=== PATIENT | female | born 1995 | race Caucasian/White ===

== ENCOUNTER 2017-08-29 19:04 | Emergency (ER) | payer OTHER ==
[~2017-08-29] VITALS: Ht 167.6 cm; Wt 90.7 kg
[2017-08-29 19:22] VITALS: BP 124/70
[2017-08-29] MEDS ORDERED: NS 1000ML 1,000 ML ONE ×2 (19:22→20:50)
[2017-08-29] MEDS ORDERED: NS 1000ML 1,000 ML IV ONE (19:30)
--- NOTE | 2017-08-29 19:30 | ER.PDOC ---
General Chief Complaint: Abdomen Pain Stated Complaint: VOMITING AND SIDE/BACK PAIN Time seen by MD: 19:25 Source: patient Exam Limitations: no limitations History of Present Illness Initial Comments Abdominal pain started earlier today, nausea, vomiting and epigastric, RUQ pain , radiating to back Timing/Duration: 4-6 hours Severity/Quality: severe, sharpness Radiation: RUQ, flank (right) Associated Symptoms: nausea/vomiting Exacerbated by: movements Allergies: Coded Allergies: No Known Allergies (Unverified , 08/29/17) Vital Signs First Vital Signs Date Time Temp Pulse Resp B/P (MAP) Pulse Ox O2 Delivery O2 Flow Rate FiO2 08/29/17 19:17 99.8 08/29/17 19:22 115 16 124/70 (88) 97 Room Air Last Vital Signs Date Time Temp Pulse Resp B/P (MAP) Pulse Ox O2 Delivery O2 Flow Rate FiO2 08/29/17 19:22 99.8 115 16 124/70 (88) 97 Room Air Past Medical History Medical History: no pertinent history Surgical History: cholecystectomy, Social History Smoking: non-smoker Alcohol Use: none Drug Use: none Constitutional: no symptoms reported EENTM: no symptoms reported Respiratory: no symptoms reported Cardiovascular: no symptoms reported Gastrointestinal: nausea, poor appetite, poor fluid intake, vomiting Genitourinary: no symptoms reported Musculoskeletal: no symptoms reported Skin: no symptoms reported Psychiatric/Neurological: no symptoms reported Endocrine: no symptoms reported Hematologic/Lymphatic: no symptoms reported Physical Exam General Appearance: No Apparent Distress, WD/WN HEENT: PERRL/EOMI, Normal ENT Inspection, TMs Normal, Pharynx Normal Neck: Non-Tender, Full Range of Motion, Supple, Normal Inspection Respiratory: chest non-tender, lungs clear, normal breath sounds, no respiratory distress, no accessory muscle use Cardiovascular: Normal Peripheral Pulses, Regular Rate, Rhythm, No Edema, No Gallop, No JVD, No Murmur Gastrointestinal: Normal Bowel Sounds, Soft, Tenderness (epigastrium and RUQ), Other (Karimi positive) Back: Normal Inspection, No Vertebral Tenderness, CVA Tenderness (R) Extremities: Normal Range of Motion, Non-Tender, Normal Inspection, No Pedal Edema, No Calf Tenderness, Normal Capillary Refill, Pelvis Stable Neurologic/Psychiatric: human resource advisor II-XII NML as Tested, No Motor/Sensory Deficits, Alert, Normal Mood/Affect, Oriented x 3 Skin: Normal Color, Warm/Dry Lymphatic: No Adenopathy Results/Orders Results/Orders Administered Medications Medications (Trade) Dose Ordered Sig/Rena Route PRN Reason Start Time Stop Time Status Last Admin Dose Admin Sodium Chloride 1,000 ml @ 1,000 mls/hr Q1H ONCE IV 08/29/17 19:30 08/29/17 20:29 08/29/17 19:24 Course Blood Pressure Systolic: 124 Blood Pressure Diastolic: 70 Blood Pressure Mean: 88 Departure Time of Disposition: 21:14 Disposition: 01 HOME, SELF-CARE Impression: Primary Impression: Gastritis and duodenitis Additional Impression: Biliary colic Condition: Stable Patient Instructions: Abdominal Pain, Gastritis, Adult Referrals: PCP,UNKNOWN (PCP) PRIMARY CARE PROVIDER Duration or Time Spent with Pa: 30 Problem Qualifiers EVA CASTILLO MD Aug 29, 2017 19:30
[2017-08-29 19:43] LABS: BASOPHIL % 0.2 % (0.0-0.2); EOSINOPHIL # 0.1 10^3/uL (0.0-0.2); EOSINOPHIL % 0.7 % (0.0-5.0); LYMPHOCYTES # 0.7 10^3/uL (1.0-4.8); LYMPHOCYTES % 6.2 % (24.0-44.0); MEAN CELL HGB 28.1 pg (26-34); MEAN CELL HGB CONCENTRATION 32.9 g/dL (33-37); MEAN CORP VOLUME 85.2 fL (78-100); MEAN PLATELET VOLUME 9.4 fL (7.8-11.0); MONOCYTES # 0.5 10^3/uL (0.3-0.8); MONOCYTES % 4.8 % (5.0-12.0); NEUTROPHIL # 9.5 10^3/uL (1.8-7.7); RED CELL DISTRIBUTION WIDTH 12.8 % (11.5-14.5); WHITE BLOOD CELL 10.8 10^3/uL (4.5-11.0)
[2017-08-29 19:59] LABS: CALCIUM 9.5 mg/dL (8.4-10.5); CARBON DIOXIDE 23.3 mmol/L (20.0-32)
[2017-08-29 20:10] LABS: BILIRUBIN,URINE NEGATIVE (NEGATIVE); UROBILINOGEN,URINE NORMAL (NEGATIVE)
[2017-08-29 20:12] LABS: APPEARANCE,URINE CLEAR (CLEAR); UA COLOR YELLOW (YELLOW)
[2017-08-29] MEDS ORDERED: MORPHINE SULFATE IV STA (20:34)
[2017-08-29 20:35] LABS: BASOPHIL 1 % (0-2); LYMPHOCYTE 3 % (25-36); MONOCYTE 2 % (3-9); SEGMENTED NEUTROPHILS 94 % (31-76)
[2017-08-29] MEDS ORDERED: MORPHINE SULFATE ONE (20:35)
--- NOTE | 2017-08-29 20:41 | NUR ---
RAD PT OUT TO CT
--- NOTE | 2017-08-29 21:03 | DIREP ---
PROCEDURE:CT ABDOMEN/PELVIS W/ CONTRAST COMPARISON:None. INDICATIONS:ruq abdominal pain, hx gb removal TECHNIQUE:Axial images were created through the abdomen and pelvis with non-ionic intravenous contrast material. No oral contrast was administered. Sagittal and coronal reconstructions were performed from source images. FINDINGS: LUNG BASES:Normal. No visible pulmonary or pleural disease. LIVER:Mild diffuse decreased attenuation is seen throughout the liver. BILIARY:Post cholecystectomy changes are seen. PANCREAS:Normal. No lesion, fluid collection, ductal dilatation, or atrophy. SPLEEN:Normal. No enlargement or focal lesion. ADRENALS:Normal. No mass or enlargement. URINARY TRACT:Normal. No focal lesions or hydronephrosis. AORTA/VASCULAR:Normal. No aneurysm. RETROPERITONEUM:Normal. No mass or adenopathy. BOWEL/MESENTERY:Normal. There is no intestinal obstruction, free fluid, free air or mesenteric inflammatory changes. The appendix is normal. ABDOMINAL WALL:Normal. No mass or hernia. PELVIC ORGANS:Normal. No visible mass. Pelvic organs appropriate for patient age. BONES:Normal for age. No bony lesion or acute fracture. OTHER:Negative. CONCLUSION:There are findings consistent with mild diffuse steatosis of the liver. Post cholecystectomy changes are seen. No acute abnormalities are seen in the abdomen and pelvis. Dictated by: Que Araiza M.D. on 08/29/2017 at 09:00 PM
[2017-08-29] MEDS ORDERED: MYLANTA PO STA (21:11)
[2017-08-29] MEDS ORDERED: LIDOCAINE VISCOUS MM STA (21:11)
[2017-08-29] MEDS ORDERED: PROTONIX IV IV STA (21:11)
[2017-08-29] MEDS ORDERED: BENTYL LIQUID ONE (21:15)
[2017-08-29] MEDS ORDERED: PROTONIX IV IV ONE (21:15)
[2017-08-29] MEDS ORDERED: LIDOCAINE VISCOUS ONE (21:16)
[2017-08-29] MEDS ORDERED: MYLANTA ONE (21:16)
[2017-08-29] MEDS ORDERED: BENTYL LIQUID PO PRN (21:30)
[2017-08-29 21:39] VITALS: BP 124/70
== END 2017-08-29 21:32 | disposition home or self-care (01) ==
LOC: ER 19:04
DX: K29.70 Gastritis, unspecified, without bleeding (principal); K29.80 Duodenitis without bleeding; K80.50 Calculus of bile duct without cholangitis or cholecystitis without obstruction; Z90.49 Acquired absence of other specified parts of digestive tract
CPT/HCPCS: 36415; 74177; 80053; 81002; 81025; 82150; 83690; 85025; 85610; 85730; 96361; 96374; 96375; 99285; C9113; J2270; J3490; J7030 ×2; Q9965